=== PATIENT | female | born 1980 | race Caucasian/White ===

== ENCOUNTER 2017-08-07 11:53 | Outpatient (CLI) | payer OTHER ==
[~2017-08-07 11:53] MED LIST: Gadobenate Dimeglumine 529 MG/1 ML (20ML VIAL) ONE
--- NOTE | 2017-08-07 16:21 | MRI ---
BRAIN MRI WITH AND WITHOUT CONTRAST: Date: 08-07-17 Comparison: Localized related symptomatic epilepsy, black out episodes, right sided headache. Technique: Multiplanar, multisequence MR imaging of the brain is obtained with and without contrast. FINDINGS: Diffusion weighted imaging demonstrates no evidence for acute infarction. Axial gradient echo imaging demonstrates no evidence for intracranial hemorrhage. There is an intraaxial lesion in the left frontal region. This lesion involves the anterior and super ior/lateral left frontal lobe and is heterogeneously hyperintense on T2 and FLAIR imaging, hypointens e on T1 weighted imaging, and involves the cortex as well as the subcortical white matter. The post c ontrast imaging demonstrates no evidence for enhancement. FLAIR imaging demonstrates a few scattered foci of increased signal within the subcortical white mario alberto er in the left insular region anteriorly, the inferior left frontal region, and the superior frontal region near the vertex bilaterally. Regional bone marrow signal intensity appears grossly unremarkable. Post contrast imaging demonstrates no abnormal enhancement within the brain parenchyma. IMPRESSION: 1. Nonenhancing intraaxial mass involving the cortex and subcortical white matter of the left frontal region, most consistent with primary brain neoplasm. 2. Nonspecific white matter disease as detailed above. Brisa Miller-Dr. Willson made aware at the time of interpretation on 08/07/2017. POS: [facility]
== END 2017-08-07 11:54 | disposition home or self-care (01) ==
LOC: SCSMRI 11:53
PROVIDERS: ATTEND Psychiatry & Neurology Neurology
DX: G40.209 Localization-related (focal) (partial) symptomatic epilepsy and epileptic syndromes with complex partial seizures, not intractable, without status epilepticus (principal); G93.89 Other specified disorders of brain
CPT/HCPCS: 70553; A9579

== ENCOUNTER 2017-09-01 05:45 | Inpatient (IN) | payer OTHER ==
--- NOTE | 2017-08-29 01:00 | HP ---
HISTORY OF PRESENT ILLNESS: Ms. Alonso is a 36-year-old female that presents with a 6 month history of headache, memory loss, and 3 episodes of blacking out while driving a car on her own. This blacko ut episodes are likely seizures, no one has been around to witness them, however. When she awakens f rom a blackout episode, she does not know where she is out or where she is going and describes it as a postictal state of consciousness. She also explains that her judgment has not been the same. On e xam, her cranial nerves are intact and she is alert, oriented x4. She answered my questions appropri ately. There is no focal nerve deficits; however, she often gets headaches and feels pressure behind her left eye and sharp stabbing pain on the right frontal skull. After obtaining an MRI with gadoli nium, there was a left frontal lobe tumor found that is likely the cause of her symptoms. 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 She has seen Neurology and was sent to us from Dr. Willson. IMAGING: MRI of the brain at [facility]. REVIEW OF SYSTEMS: Ten-point review of systems completed, otherwise negative unless stated in the ab ove HPI. PAST MEDICAL HISTORY: Bipolar disorder. PAST SURGICAL HISTORY: Tubal in 2006. FAMILY HISTORY: Father is alive. Mother is alive, siblings are alive. Child is alive. SOCIAL HISTORY: Patient is a nonsmoker. She does not use alcohol or illicit drugs. She is a homema ker for occupation. She is and has children. MEDICATIONS: 1. Keppra 500 mg tablet 1 tablet orally twice a day. 2. Trazamine. 3. [place] carbonate 300 mg tablet 1 tablet orally three times a day. 4. Buspirone hydrochloride. ALLERGIES: VICODIN causes a rash. PHYSICAL EXAMINATION: HEENT: Normocephalic, atraumatic. Hearing intact. Moist mucous membranes. Trachea is midline. Ey es: Pupils are equal and reactive to light. Extraocular muscles are intact. Sclerae is white, clau cteric. PSYCHIATRIC: Normal mood and affect. CARDIOVASCULAR/CARDIOPULMONARY: No cyanosis or clubbing noted. Intact pedal pulses bilaterally. MUSCULOSKELETAL: Lower extremities, 5/5 strength in bilateral iliopsoas, quadriceps, hamstrings, rig ht tibialis anterior and extensor hallucis longus. There are no sensory deficits bilaterally. Nonte nder to palpation in the midline lumbar spine. EXTREMITIES: Upper extremity, 5/5 strength in bilateral biceps and triceps. Full range of motion. No sensory deficits bilaterally. RESPIRATORY: Even respirations, good effort in all lung alvarado sound clear with no wheezing or crack les. NEUROLOGIC: Cranial nerves II-XII are grossly intact. Speech is fluent. She answers my questions a ppropriately. She has normal gait and station. ASSESSMENT: Primary brain tumor. We will add Keppra 500 mg p.o. b.i.d. to her medication regimen as her blackout are likely seizures. Dr. Melendrez has offered a left frontal craniotomy with tumor res ection. We discussed the risks, benefits, and alternatives and expected results, possible complicati ons of surgery. She is willing to proceed with the surgery.
[2017-09-01] MEDS ORDERED: Lidocaine 1% w/Epinephrine 1:200K 30 ML VIAL ONE (06:18)
[2017-09-01] MEDS ORDERED: Sodium Chloride 0.9% 20 ML ONE (06:18)
[2017-09-01] MEDS ORDERED: Thrombin 5000 UNITS/5 ML VIAL ONE (06:19)
[2017-09-01] MEDS ORDERED: Bacitracin Zinc Ointment 30 gm TUBE ONE (06:19)
[2017-09-01] MEDS ORDERED: Midazolam HCl 2 mg/2 ml Vial ONE (06:33)
[2017-09-01] MEDS ORDERED: CEFAZOLIN/Water 2 GM/20 ML SYRINGE ONE (06:33)
[2017-09-01] MEDS ORDERED: Phenylephrine 10 MG/NS 250 ML 250 ML ONE (06:36)
[2017-09-01] MEDS ORDERED: Propofol 1,000 MG/100 ML VIAL IV ONE ×2 (06:36→08:24)
[2017-09-01] MEDS ORDERED: Famotidine/PF 20 mg/2ml Vial ONE (06:44)
[2017-09-01 06:47] LABS: #Basophils 0.1 thou/uL (0.0-0.2); #Eosinphils 0.2 thou/uL (0.0-0.7); #Lymphocytes 1.8 thou/uL (1.20-3.40); #Monocytes 0.3 thou/uL (0.11-0.59); #Neutrophils 3.9 thou/uL (1.40-6.50); %Basophils 1.1 % (0.0-1.0); %Lymphocytes 29.2 % (21.0-51.0); %Monocytes 5.2 % (0.0-10.0); %Neutrophils 61.5 % (42.0-75.0); Hemoglobin 13.7 g/dL (12.0-16.0); Mean Corpuscular HGB CONC 33.1 g/dL (32.0-36.0); Mean Corpuscular Hemoglobin 30.8 pg (27.0-31.0); Mean Corpuscular Volume 92.9 fl (81.0-99.0); Mean Platelet Volume 7.5 fL (7.4-10.4); Platelet Count 282 thou/uL (130-400); RBC Distribution Width 11.9 % (11.5-14.5); Red Blood Cell (RBC) Count 4.45 mill/uL (4.20-5.40); White Blood Cell (WBC) Count 6.3 thou/uL (4.8-10.8)
[2017-09-01 07:02] LABS: PTT 32.2 SEC (22.9-36.1); Prothrombin Time 13.3 SEC (12.0-14.7)
[2017-09-01] MEDS ORDERED: Fentanyl 250 MCG/5 ML VIAL ONE (07:16)
[2017-09-01] MEDS ORDERED: Fentanyl 100 MCG/2 ML VIAL ONE ×3 (07:16→12:56)
[2017-09-01] MEDS ORDERED: Promethazine HCl 25 MG/ML VIAL IM PRN (09:19)
[2017-09-01] MEDS ORDERED: Promethazine HCl 25 MG/ML VIAL SLOW IVP PRN ×2 (09:19→18:19)
[2017-09-01] MEDS ORDERED: HYDROmorphone 2 MG/ML VIAL SLOW IVP PRN (09:19)
[2017-09-01] MEDS ORDERED: Ondansetron HCl/PF 4 MG/2 ML Vial IVP PRN ×2 (09:19→11:32)
[2017-09-01] MEDS ORDERED: hydrALAZINE 20 MG/ML VIAL SLOW IVP PRN (11:32)
[2017-09-01] MEDS ORDERED: Morphine 4 MG/ML Carpuject SLOW IVP PRN (11:32)
[2017-09-01] MEDS ORDERED: Acetaminophen 325 MG TAB PO PRN (11:32)
[2017-09-01] MEDS ORDERED: Ondansetron HCl/PF 4 MG/2 ML Vial ONE ×2 (12:52→13:59)
[2017-09-01] MEDS ORDERED: Dexamethasone 20 MG/5 ML VIAL ONE (13:59)
[2017-09-01] MEDS ORDERED: PROPOFOL 200 MG/20 ML VIAL ONE (13:59)
[2017-09-01] MEDS ORDERED: Glycopyrrolate 0.2 MG/ML 5 ML SYRINGE ONE (13:59)
[2017-09-01] MEDS ORDERED: Lidocaine 1% PF 5 ML VIAL ONE (13:59)
[2017-09-01] MEDS: Dexamethasone 4 mg/ml Vial SLOW IVP SCH ×3 (14:28→23:32)
[2017-09-01] MEDS: Sodium Chloride 0.9% 1,000 ML IV SCH ×2 (14:28→18:27)
[2017-09-01 14:49] VITALS: BMI 26.6
[2017-09-01] MEDS ORDERED: Morphine 4 MG/ML VIAL SLOW IVP PRN (15:15)
[2017-09-01] MEDS: Morphine 4 MG/ML VIAL SLOW IVP PRN ×2 (15:18→20:36)
[2017-09-01] MEDS: Lithium Carbonate 150 MG CAP PO SCH ×2 (15:19→20:39)
--- NOTE | 2017-09-01 19:49 | OP ---
NEUROSURGERY OPERATIVE NOTE DATE OF PROCEDURE: 09/01/2017 SURGEON: Flavio Melendrez M.D. [employer] STOCK CLERK: Benito Stafford PA-C. PREOPERATIVE INDICATION: Make diagnosis, prevent neurological deterioration. PREOPERATIVE DIAGNOSES: Left frontal lobe lesion and new onset seizures. POSTOPERATIVE DIAGNOSES: Left frontal lobe lesion and new onset seizures. OPERATIVE PROCEDURES: BrainLAB stereotactic assisted left frontal craniotomy and tumor resection. PREOPERATIVE MEDICATION: Ancef 2 grams IV. DRAIN NUMBER: Zero. DRAIN TYPE: None. PROCEDURE IN DETAIL: The patient was brought to the operating room. General endotracheal anesthesia was induced. The patient was positioned on the operating table supine and the head was immobilized in a [place] jose headholder and the [place] attachment for the operating table. Using the preop erative BrainLAB protocol, MRI scan, the BrainLAB system and surface matching technique, we generated 3 dimensional stereotactic space around the patient's head by registering with our BrainLAB system. We confirmed our registration with surface landmarks and the concordance was excellent. Hair was re moved with electric clippers. We planned a curvilinear incision on the left side of the head and the n under planned incision, we infused local anesthetic. The scalp was sterilely prepped and draped. We opened our incision with a 10 blade knife and controlled bleeding with bipolar cautery. We folded our scalp flap forward in the subgaleal layer and the subperiosteal layer. The navigation wand was used to localize the tumor on the skull. We made bur holes just below the superior temporal line, th en a frontal keyhole one in the posterior portion of the superior temporal line and then one frontal bone bur hole medial to the tumor. Using a side-cutting bit and a foot plate, we fashioned a triangu lar shaped left frontal craniotomy, removed the skull flap and found the dura completely intact benea th it. We opened the dura in a cruciate fashion and encountered the brain surface beneath. The oper ative microscope was brought into the field. Under microscopic magnification using microsurgical techniques, we identified the edges of the abnorm al middle frontal gyrus. This gyrus was widely expanded pushing neighboring brain away and was clear ly abnormal. Using a navigation wand, we identified the edges of the presentation of the tumor in th e brain surface using combination with the mitch of the sulci provided resection boundaries. We incise d the mitch over the edges of the tumor and gently sucked tumor away from the sulci and did this circum ferentially around the most superficial portion of the tumor. Samples were sent for frozen section, confirming low-grade glial neoplasm. We continued circumferentially dissecting spanning sulcal plane all the way down to normal appearing white matter. Once we arrived at the normal appearing white ma tter through the very root of the sulcus that we were resecting, we transected our tumor there and we sent a large tumor mass to histopathology for permanent sections. The navigation wand was brought b ack into the field. We verified that we had volumetric circumferential resection of the tumor. We c ounted for brain shift and felt we had more than adequate resection. We inspected the resection cavi ty. Small bits of the abnormal tissue were removed. We irrigated copiously with bacitracin irrigati on and hemostasis was excellent. We reapproximated the dura with the 4-0 pop offs silk sutures and t sandy the operating microscope out of the field. The skull flap was reapproximated with titanium plate s and screws. We closed the scalp in anatomic layers and applied a sterile dressing. This was a pb an case and no contamination.
[2017-09-01] MEDS: levETIRAcetam 500 MG TAB PO SCH (20:39)
[2017-09-01] MEDS: Famotidine/PF 20 mg/2ml Vial SLOW IVP SCH (20:39)
[2017-09-01] MEDS: Lovastatin 20 MG TAB PO SCH (20:39)
[2017-09-01] MEDS: Vancomycin HCl 1 GM in Premix Bag 1 BAG IVPB SCH (20:41)
[2017-09-01] MEDS: traZODone HCl 150 MG TAB PO SCH (20:45)
[2017-09-01] MEDS: busPIRone HCl 5 MG TAB PO SCH (20:47)
[2017-09-02] MEDS: Morphine 4 MG/ML VIAL SLOW IVP PRN ×2 (04:29→10:38)
[2017-09-02] MEDS: Dexamethasone 4 mg/ml Vial SLOW IVP SCH ×4 (05:34→23:33)
--- NOTE | 2017-09-02 08:13 | PRG ---
DATE OF SERVICE: 09/02/2017 I saw Ms. Alonso in her room in the ICU this morning. Her incision looks good. She is status post day 1 from a left frontal craniotomy and tumor resection. Frozen specimens were sent to the lab and are still pending. Her vital signs overnight have been stable. There have been no acute changes in her neurologic status. Her incision looks well, it is closed with jigna. I took the craniotomy head wrap off and I am going to have the nurse clean the incision and take the Betadine out of her hair this morning. She has some swelling under the left eye with some bruising which is common after a craniotomy. She can be transferred to floor care today. If there are any further questions, please feel free to contact Neurosurgery. [place]
[2017-09-02] MEDS: busPIRone HCl 5 MG TAB PO SCH ×2 (08:33→20:58)
[2017-09-02] MEDS: Vancomycin HCl 1 GM in Premix Bag 1 BAG IVPB SCH (08:34)
[2017-09-02] MEDS: levETIRAcetam 500 MG TAB PO SCH ×2 (08:34→20:59)
[2017-09-02] MEDS: Lithium Carbonate 150 MG CAP PO SCH ×3 (08:34→21:00)
[2017-09-02] MEDS: Famotidine/PF 20 mg/2ml Vial SLOW IVP SCH ×2 (08:34→21:00)
--- NOTE | 2017-09-02 10:07 | PRG ---
DATE OF SERVICE: 09/02/2017 NEUROSURGERY PROGRESS NOTE SUBJECTIVE: I saw Ms. Alonso in ICU room this morning. She is 1 day out from craniotomy for tumor r esection. Ms. Alonso is wide awake. She does not have any pronator drift. There is no supplementar y motor area weakness. There is no dysphagia. Ms. Alonso has been stable all night and is ready for transfer to floor care. She remains stable the re alert overnight. She can be discharged tomorrow. Tomorrow evening, she can begin showering. If shampoo, soap or water gets on into cranial incision, she can dry with a towel. Followup has already been arranged in our clinic for ongoing care and activity restrictions. She will remain on Keppra. We will wean her quickly off Decadron and then later next week when pathology results are available. We will talk to her in the office about adjuvant therapies.
[2017-09-02] MEDS: Sodium Chloride 0.9% 1,000 ML IV SCH (13:17)
[2017-09-02] MEDS ORDERED: Morphine 4 MG/ML Carpuject SLOW IVP PRN (14:31)
[2017-09-02] MEDS: Morphine 4 MG/ML Carpuject SLOW IVP PRN ×2 (14:33→21:01)
[2017-09-02] MEDS: traZODone HCl 150 MG TAB PO SCH (20:57)
[2017-09-02] MEDS: Lovastatin 20 MG TAB PO SCH (20:59)
[2017-09-03] MEDS: Sodium Chloride 0.9% 1,000 ML IV SCH (01:05)
[2017-09-03] MEDS: Dexamethasone 4 mg/ml Vial SLOW IVP SCH (06:23)
[2017-09-03 08:34] VITALS: BP 109/68; TEMP 97.7
--- NOTE | 2017-09-03 08:45 | PRG ---
DATE OF SERVICE: 09/03/2017 I saw Ms. Alonso in our hospital room this morning. She is out of the ICU and doing well. She has h ad no difficulties since surgery. She has some swelling on the left side of the face and around the eye, as expected. I do not see any new neurological deficit involving the right side. There is no s upplementary motor area weakness that we were prepared for. This neurological result is good. She i s ready for discharge today. We went over home going activity restrictions, wound care, and followup arrangements. 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 Will have to meet with the oncologi st and radiation oncologist for adjuvant therapy discussion.
[2017-09-03] MEDS: levETIRAcetam 500 MG TAB PO SCH (09:21)
[2017-09-03] MEDS: busPIRone HCl 5 MG TAB PO SCH (09:21)
[2017-09-03] MEDS: Famotidine/PF 20 mg/2ml Vial SLOW IVP SCH (09:21)
[2017-09-03] MEDS: Lithium Carbonate 150 MG CAP PO SCH (09:43)
--- NOTE | 2017-09-03 18:51 | DIS ---
DATE OF ADMISSION: 09/01/2017 DATE OF DISCHARGE: 09/03/2017 ADMISSION DIAGNOSES: Left frontal lobe lesion and new-onset seizures. DISCHARGE DIAGNOSES: Left frontal lobe lesion and new-onset seizures; however, patient has improved. DISCHARGE CONDITION: The patient is stable. She is tolerating a regular diet. Her pain is well con trolled with pain medication. She has been ambulating on her own in the keith. CONSULTATIONS: None. PROCEDURES: BrainLAB sterotactic-assisted left frontal craniotomy and tumor resection. All images w ere taken intraoperatively. BRIEF HISTORY OF PRESENT ILLNESS: Ms. Alonso is a 36-year-old female, who had complaints of new-onse t seizure and headache. MRI of the brain was completed and left frontal lobe lesion was found. HOSPITAL COURSE: Ms. Alonso spent 1 night in the ICU postoperatively and did very well. She had merlene e nausea that was controlled with Phenergan. She remained stable in the ICU and was transported the next day to floor care. There have been no acute events on her hospital stay here. DISCHARGE PHYSICAL EXAMINATION: HEENT: Normocephalic, atraumatic. Hearing intact. Moist mucous membranes. Trachea is midline. In cision is on the left side of the scalp, closed and intact with jigna. EYES: Pupils are equal and reactive to light. Extraocular muscles are intact. Sclerae is white, no nicteric. CARDIOVASCULAR: The patient has regular rate and rhythm. Normal S1, S2 heart sounds. No distal cya nosis or clubbing noted. RESPIRATORY: The patient has bilateral symmetric chest rise, appears to be in no shortness of breath . NEUROLOGIC: Cranial nerves II-XII are grossly intact. Speech is fluent and she answers my questions appropriately. She has no cerebellar signs. MUSCULOSKELETAL: A 5/5 strength in the upper and lower extremities bilaterally. There are no dermat omal sensory or motor deficits noted in the upper or lower extremities. Pulses are +2 in the upper e xtremities in the brachial and radial pulses and +2 in the posterior tibial pulses in the lower extre mity. ACTIVITY: The patient can have regular activity with restrictions of no vigorous activity for 2 week s. DIET: The patient can have a regular diet. HOME MEDICATIONS: 1. 1 tablet p.o. b.i.d. 2. Trazodone 1.5 tablet p.o. at bedtime. 3. Buspirone HCL 2 tablets p.o. b.i.d. 4. Lovastatin 1 tablet p.o. at bedtime. 5. [place] carbonate 1 tablet p.o. t.i.d. 6. Tylenol #3 one to two tablets q.4 hours p.r.n. 7. Dexamethasone taper postoperatively. If there are any further questions, please feel free to contact Neurosurgery.
== END 2017-09-03 10:33 | disposition home or self-care (01) | DRG 27 ==
LOC: SURG A 05:45 → CCU 13:48 → SURG A 09-02 12:33
PROVIDERS: ADMIT Neurological Surgery; ATTEND Neurological Surgery
PROC: 00B70ZX Excision of Cerebral Hemisphere, Open Approach, Diagnostic (ICD-10-PCS; principal; 2017-09-01)
DX: C71.1 Malignant neoplasm of frontal lobe (principal); E78.5 Hyperlipidemia, unspecified; G40.909 Epilepsy, unspecified, not intractable, without status epilepticus; Z87.891 Personal history of nicotine dependence; F12.90 Cannabis use, unspecified, uncomplicated; F31.9 Bipolar disorder, unspecified
CPT/HCPCS: 36415; 85025; 85610; 85730; 88307; 88325; 88331; 88334; 88341; 88342; 88360; A4216; C1713; J0131; J1100; J1953; J2001; J2250; J2270; J2405; J2550; J2704; J3010; J3370; J3490; S0028

== ENCOUNTER 2017-11-28 09:24 | Outpatient (CLI) | payer OTHER ==
--- NOTE | 2017-11-28 11:40 | MRI ---
BRAIN MRI WITH AND WITHOUT CONTRAST: Comparison: 08-07-17 History: Malignant neoplasm of the brain, unspecified. Follow up exam for previous tumor resection. Technique: Brain MRI is performed with and without intravenous gadolinium administration. Multisequen tial, multiplanar imaging performed. FINDINGS: There is hemorrhage and hemosiderin deposition at the post-operative site. There are post-surgical ch anges involving the left frontal calvarium. There is malacic and gliotic change involving the left fr ontal lobe. Additional T2 and FLAIR white matter hyperintensities are nonspecific. No midline shift. Basilar cisterns are patent. With the exception of the left frontal lobe, cortical beavers white matter differentiation is preserved. Ventricles and sulci are patent and symmetric. Central arterial flow voids are maintained. Absent restricted diffusion. Adequate aeration of the visualized sinuses and mastoid air cells. No pathologic enhancement of the brain parenchyma. There is enhancement of the dura underlying the ca lvarial surgical defects. IMPRESSION: Post-operative change involving the left frontal lobe. No evidence of enhancement to suggest residual tumor. POS: [facility]
== END 2017-11-28 09:25 | disposition home or self-care (01) ==
LOC: TBSIIMAG 09:24
PROVIDERS: ATTEND Neurological Surgery
DX: Z08 Encounter for follow-up examination after completed treatment for malignant neoplasm (principal); Z85.841 Personal history of malignant neoplasm of brain; Z98.890 Other specified postprocedural states
CPT/HCPCS: 70553; A9579

== ENCOUNTER 2018-04-17 13:24 | Outpatient (CLI) | payer OTHER ==
--- NOTE | 2018-04-17 15:53 | MRI ---
BRAIN MRI WITH AND WITHOUT CONTRAST: 04/17/18 COMPARISON: 11/28/17. CLINICAL HISTORY: Malignant neoplasm of brain. Prior resection of astrocytoma. FINDINGS: Left frontal encephalomalacia with overlying craniotomy and pachymeningeal enhancement again seen at the anterior left cranial fossa. An underlying postsurgical cavitary encephalomalacia left frontal lo be is present. There is no pathologic intraaxial enhancement. Mild scattered foci of signal alteratio n of the cerebral hemispheres remain. No acute territorial infarction. The imaged skull base flow voi ds are maintained. IMPRESSION: Stable postoperative brain MRI with persistent region of cavitary encephalomalacia in the left fronta l lobe and overlying pachymeningeal enhancement of the dura compatible with post treatment dural hype rplasia. POS: [facility]
== END 2018-04-17 13:25 | disposition home or self-care (01) ==
LOC: TBSIIMAG 13:24
PROVIDERS: ATTEND Neurological Surgery
DX: C71.9 Malignant neoplasm of brain, unspecified (principal); G93.89 Other specified disorders of brain; Z98.890 Other specified postprocedural states
CPT/HCPCS: 70553

== ENCOUNTER 2018-09-03 13:13 | Outpatient (CLI) | payer OTHER ==
--- NOTE | 2018-09-03 15:53 | MRI ---
BRAIN MRI WITH AND WITHOUT CONTRAST: INDICATIONS: Malignant neoplasm of brain, unspecified. COMPARISON: 04/17/2018 FINDINGS: Redemonstration of postoperative resection cavity, left frontal lobe, with surrounding gliosis and ov erlying pachymeningeal prominence. There are scattered areas of mild parenchymal signal abnormality again seen. No interval pathologic intraaxial enhancement evident. No significant interval detrimen sybil change is demonstrated. IMPRESSION: Stable postoperative brain MRI with cavitary encephalomalacia of the left frontal lobe and overlying pachymeningeal distribution of dural thickening overlying the left convexity. POS: [facility]
== END 2018-09-03 13:14 | disposition home or self-care (01) ==
LOC: TBSIIMAG 13:13
PROVIDERS: ATTEND Neurological Surgery
DX: C71.9 Malignant neoplasm of brain, unspecified (principal); G93.89 Other specified disorders of brain; Z98.890 Other specified postprocedural states
CPT/HCPCS: 70553; A9579

== ENCOUNTER 2019-10-15 08:37 | Outpatient (CLI) | payer OTHER ==
--- NOTE | 2019-10-15 10:04 | MRI ---
MRI brain with and without IV contrast. Multiplanar and multisequential imaging of brain obtained according to protocol. INDICATIONS: Malignant neoplasm of brain. Follow-up. COMPARISON: MRI brain 09/03/2018 FINDINGS: Ventricles have normal size shape and position. No evidence of restricted diffusion. No significant white matter abnormality. Postoperative changes are again noted in the left frontal lobe. There is an operative defect with regi rounding gliosis on FLAIR sequence which appear stable. Nodular dural enhancement overlying this defect is stable. No new enhancement. Intracranial internal carotid arteries, proximal cerebral arteries, and basilar arteries show normal flow voids. Dural venous sinuses appear patent. Visualized paranasal sinuses and mastoids appear clear. Orbits appear unremarkable. IMPRESSION: Postoperative changes left frontal lobe appears stable. No acute interval change.
[2019-10-15] MEDS ORDERED: Magnevist 469MG/ML 20 ML VIAL ONE (14:01)
== END 2019-10-15 08:38 | disposition home or self-care (01) ==
LOC: MRI 08:37
PROVIDERS: ATTEND Neurological Surgery
DX: C71.9 Malignant neoplasm of brain, unspecified (principal); Z98.890 Other specified postprocedural states
CPT/HCPCS: 70553; A9579

== ENCOUNTER 2020-07-20 14:04 | Outpatient (CLI) | payer OTHER ==
[~2020-07-20 14:04] MED LIST changes: -Gadobenate Dimeglumine 529 MG/1 ML (20ML VIAL) ONE; +Magnevist 469MG/ML 20 ML VIAL ONE
--- NOTE | 2020-07-20 15:49 | MRI ---
Exam: Brain MRI with and without contrast HISTORY: Follow-up malignant neoplasm of the brain. COMPARISON: 10/15/2019, 08/24/2018, 04/17/2018, 08/07/2017 FINDINGS: Gradient echo sequence: Minimal hemosiderin deposition at the surgical resection site along the left frontal lobe. Calvarium: Appropriate T1 marrow signal intensity Midline brain parenchyma: Unremarkable Cerebrum:Stable encephalomalacia and gliosis along the left frontal lobe. Additional T2 and FLAIR whi te matter hyperintensities are noted along the left and right frontal subcortical white matter. The overall degree and distribution of white matter hyperintensities in the subcortical white matter maggie g both frontal lobes is stable. Ventricles: No evidence of hydrocephalus. Sinuses and mastoid air cells: Adequate aeration Diffusion: Central arterial flow is maintained. Absent restricted diffusion. Postcontrast images:No pathologic enhancement the brain parenchyma. Stable mild enhancement of the du ra underneath the left calvarial craniotomy defect. IMPRESSION: 1. Stable postoperative changes. 2. No evidence of residual or recurrent tumor.
== END 2020-07-20 14:05 | disposition home or self-care (01) ==
LOC: TBSIIMAG 14:04
PROVIDERS: ATTEND Neurological Surgery
DX: C71.9 Malignant neoplasm of brain, unspecified (principal); Z98.890 Other specified postprocedural states
CPT/HCPCS: 70553; A9579

== ENCOUNTER 2020-12-23 09:03 | Outpatient (CLI) | payer OTHER ==
[2020-12-23] MEDS ORDERED: Magnevist 469MG/ML 20 ML VIAL ONE (15:11)
== END 2020-12-23 09:04 | disposition home or self-care (01) ==
LOC: TBSIIMAG 09:03
PROVIDERS: ATTEND Neurological Surgery
DX: C71.9 Malignant neoplasm of brain, unspecified (principal); Z98.890 Other specified postprocedural states
CPT/HCPCS: 70553; A9579

== ENCOUNTER 2021-06-21 08:27 | Outpatient (CLI) | payer OTHER | END 2021-06-21 08:28 | disposition home or self-care (01) | LOC: TBSIIMAG 08:27 | PROVIDERS: ATTEND Neurological Surgery | DX: C71.9 Malignant neoplasm of brain, unspecified (principal); Z98.890 Other specified postprocedural states | CPT/HCPCS: 70553 ==

== ENCOUNTER 2022-01-03 10:30 | Outpatient (CLI) | payer OTHER | END 2022-01-03 10:31 | disposition home or self-care (01) | LOC: TBSIIMAG 10:30 | PROVIDERS: ATTEND Neurological Surgery | DX: C71.9 Malignant neoplasm of brain, unspecified (principal); Z98.890 Other specified postprocedural states | CPT/HCPCS: 70553; A9579 ==

== ENCOUNTER 2022-05-06 07:48 | Outpatient (CLI) | payer OTHER | END 2022-05-06 07:49 | disposition home or self-care (01) | LOC: BICULT 07:48 | PROVIDERS: ATTEND Nurse Practitioner Family | DX: R92.2 Inconclusive mammogram (principal) | CPT/HCPCS: G0279 ==

== ENCOUNTER 2022-08-24 14:14 | Outpatient (CLI) | payer OTHER | END 2022-08-24 14:15 | disposition home or self-care (01) | LOC: TBSIIMAG 14:14 | PROVIDERS: ATTEND Neurological Surgery | DX: C71.9 Malignant neoplasm of brain, unspecified (principal); Z98.890 Other specified postprocedural states | CPT/HCPCS: 70553; A9579 ==